=== PATIENT | male | born 1945 | race Caucasian/White ===

== ENCOUNTER → 2020-03-10 | Outpatient (REF) | payer MEDICARE ==
[~2020-03-10] MED LIST: AMLO10TA5 PO; ASPI81TA26 PO; ATEN100T PO; COLA100C5 PO; CRES5TAB PO; ENAL20TA PO; HUMA75VL SC; HYDR50TAB PO; INSUHUMDS SC; METF10004 PO; PERC5TAB12 PO; PIOG1TAB36 PO; TYLE325T5 PO; VITA500T88 PO; ZOFR4TAB14 PO
== END ==
LOC: M LAB REF 14:50
PROVIDERS: ATTEND Ophthalmology
DX: D23.111 Other benign neoplasm of skin of right upper eyelid, including canthus (principal)

== ENCOUNTER 2021-07-03 12:32 | Inpatient (IN) | payer MEDICARE ==
[~2021-07-03] VITALS: Ht 175.3 cm; Wt 131.3 kg
[~2021-07-03 12:32] MED LIST changes: -AMLO10TA5 PO; +AMLO1TAB25 PO; +BARICITINIB 2MG TABLET (OLUMIANT) FOR EUA PO SCH; -ENAL20TA PO; +ENAL20TA11 PO; +dexameTHASONE 4 MG/ML 1ML VIAL (J1100 PER 1MG) IV SCH
[2021-07-03 14:10] LABS: VENOUS BASE EXCESS -0.2 (-2.0-2.0); VENOUS HCO3 27.4 MEQ/L (23.0-27.0); VENOUS O2 SATURATION 50.4 % (60.0-80.0); VENOUS PARTIAL PRESSURE CO2 55.9 mmHg (38.0-50.0); VENOUS PARTIAL PRESSURE O2 28.4 mmHg (30.0-50.0); VENOUS PH 7.308 UNITS (7.330-7.430); VENOUS TOTAL CO2 29.1 MEQ/L (24.0-28.0)
[2021-07-03 14:16] LABS: BASO % 0.1 % (0.0-1.0); HEMATOCRIT 46.6 % (42.0-52.0); HEMOGLOBIN 15.8 g/dl (13.5-17.5); LYMPH # 1.2 10^3/uL (1.5-5.0); LYMPH % 15.4 % (24.0-44.0); MEAN CORPUSCULAR HEMOGLOBIN 30.6 pg (27.0-33.0); MEAN CORPUSCULAR HGB CONC 33.9 g/dl (32.0-36.5); MEAN CORPUSCULAR VOLUME 90.3 fl (80.0-96.0); MONO # 0.6 10^3/uL (0.0-0.8); MONO % 7.3 % (2.0-8.0); NEUTROPHILS # 6.1 10^3/uL (1.5-8.5); NEUTROPHILS % 76.6 % (36.0-66.0); PLATELET COUNT, AUTOMATED 155 10^3/uL (150-450); RED BLOOD COUNT 5.16 10^6/uL (4.30-6.10)
[2021-07-03 14:33] LABS: INR 0.91; PROTHROMBIN TIME 12.7 SECONDS (12.7-14.5)
[2021-07-03 14:34] LABS: PARTIAL THROMBOPLASTIN TIME 31.5 SECONDS (25.9-37.0)
[2021-07-03 14:36] LABS: D-DIMER QUANT 1051.41 ng/ml (<500)
[2021-07-03 14:45] LABS: BLOOD UREA NITROGEN 66 MG/DL (7-18); GLUCOSE, FASTING 396 MG/DL (70-100)
[2021-07-03] MEDS ORDERED: AZITHROMYCIN INJ 500 MG, VIAL MATE ADAPTER 1 EACH in NS 250 ML IV ONE (14:45)
[2021-07-03] MEDS ORDERED: NS 3,930 ML in IV 1 EA IV ONE (14:45)
[2021-07-03] MEDS ORDERED: cefTRIAXone SOD 2 GM in D5W MINI-BAG PLUS 50 ML IV ONE (14:45)
[2021-07-03 14:46] LABS: ALBUMIN 2.8 GM/DL (3.2-5.2); ALT/SGPT 17 U/L (12-78); BILIRUBIN,TOTAL 0.6 MG/DL (0.2-1.0); CALCIUM LEVEL 8.6 MG/DL (8.8-10.2); CARBON DIOXIDE LEVEL 30 MEQ/L (21-32); CHLORIDE LEVEL 95 MEQ/L (98-107); CK-MB VALUE MASS 3.5 NG/ML (<3.6); CPK CREATINE PHOSPHOKINASE 453 U/L (39-308); FERRITIN 1352 NG/ML (26-388); GLOMERULAR FILTRATION RATE 17.6 (>42); LDH LACTATE DEHYDROGENASE 340 U/L (87-241); MAGNESIUM LEVEL 1.9 MG/DL (1.8-2.4); MB/CK RELATIVE INDEX 0.77 (< OR =4); POTASSIUM SERUM 4.3 MEQ/L (3.5-5.1); SODIUM LEVEL 134 MEQ/L (136-145); TOTAL PROTEIN 7.4 GM/DL (6.4-8.2); TROPONIN I < 0.02 NG/ML (< 0.10)
[2021-07-03] MEDS ORDERED: GLUCAGON INJ 1MG VIAL SC PRN (17:50)
[2021-07-03] MEDS ORDERED: GLUCOSE 4GM CHEW TABLET PO PRN (17:50)
[2021-07-03] MEDS ORDERED: DEXTROSE 50% 50 ML SYRINGE IV PRN (17:50)
[2021-07-03] MEDS ORDERED: REMDESIVIR 200 MG in NS 250 ML IV ONE (20:00)
[2021-07-03] MEDS ORDERED: ENOXAPARIN 80MG/0.8ML SYRINGE (J1650 PER 10MG) SC SCH (21:00)
[2021-07-03] MEDS ORDERED: SODIUM CHLORIDE 0.9% INJ 10 ML SYR IV ONE (22:00)
[2021-07-03 22:47] VITALS: BP 141/80
[2021-07-03] MEDS: NS 1,000 ML IV SCH (23:18)
[2021-07-03] MEDS: HumaLOG INSULIN (NovoLOG) PER UNIT SC SCH (23:26)
[2021-07-03] MEDS: dexameTHASONE 4 MG/ML 1ML VIAL (J1100 PER 1MG) IV SCH (23:58)
[2021-07-04] VITALS (14 sets, daily range): BP systolic 128–169; BP diastolic 58–73; O2SAT 88–97
[2021-07-04] MEDS ORDERED: ZETI10TA16 PO
[2021-07-04] MEDS ORDERED: TOUJ1.2I SC
[2021-07-04] MEDS ORDERED: HUMA50IN4 SC
[2021-07-04] MEDS ORDERED: VICT18IN SC
[2021-07-04] MEDS ORDERED: LOSA50TA28 PO
[2021-07-04] MEDS ORDERED: ASPI-161 PO
[2021-07-04] MEDS: BARICITINIB 2MG TABLET (OLUMIANT) FOR EUA PO SCH ×2 (00:12→20:07)
[2021-07-04 03:11] LABS: APPEARANCE, URINE HAZY (CLEAR); BACTERIA, URINE AUTO NEGATIVE (NEGATIVE); BILIRUBIN, URINE AUTO NEGATIVE (NEGATIVE); BLOOD, URINE BLOOD NEGATIVE (NEGATIVE); COLOR, URINE YELLOW (YELLOW); GLUCOSE, URINE (UA) AUTO 3+ mg/dL (NEGATIVE); KETONE, URINE AUTO TRACE mg/dL (NEGATIVE); LEUKOCYTE ESTERASE, URINE AUTO NEGATIVE (NEGATIVE); MUCUS, URINE SMALL (NEGATIVE); NITRITE, URINE AUTO NEGATIVE (NEGATIVE); PROTEIN, URINE AUTO 2+ mg/dL (NEGATIVE); RBC, URINE AUTO 1 /HPF (0-3); SQUAMOUS EPITHELIAL CELL UR AU 2 /HPF (0-6); UROBILINOGEN, URINE AUTO 0.2 mg/dL (0.0-2.0); WBC, URINE AUTO 4 /HPF (0-3)
[2021-07-04 05:52] LABS: BASO % 0.2 % (0.0-1.0); HEMATOCRIT 41.5 % (42.0-52.0); LYMPH # 0.9 10^3/uL (1.5-5.0); LYMPH % 13.1 % (24.0-44.0); MEAN CORPUSCULAR HEMOGLOBIN 30.6 pg (27.0-33.0); MEAN CORPUSCULAR HGB CONC 33.7 g/dl (32.0-36.5); MEAN CORPUSCULAR VOLUME 90.8 fl (80.0-96.0); MONO # 0.3 10^3/uL (0.0-0.8); MONO % 5.1 % (2.0-8.0); NEUTROPHILS # 5.4 10^3/uL (1.5-8.5); NEUTROPHILS % 80.8 % (36.0-66.0); PLATELET COUNT, AUTOMATED 152 10^3/uL (150-450); RED BLOOD COUNT 4.57 10^6/uL (4.30-6.10); WHITE BLOOD COUNT 6.6 10^3/uL (4.0-10.0)
[2021-07-04 06:20] LABS: CALCIUM LEVEL 7.5 MG/DL (8.8-10.2); CREATININE FOR GFR 2.62 MG/DL (0.70-1.30); GLOMERULAR FILTRATION RATE 25.4 (>42); MAGNESIUM LEVEL 1.8 MG/DL (1.8-2.4); POTASSIUM SERUM 3.8 MEQ/L (3.5-5.1)
[2021-07-04] MEDS: HumaLOG INSULIN (NovoLOG) PER UNIT SC SCH ×4 (08:43→20:10)
[2021-07-04] MEDS: NS 1,000 ML IV SCH ×3 (08:44→17:42)
[2021-07-04] MEDS ORDERED: LEVEMIR (INSULIN DETEMIR) 1 UNITS/0.01ML SC SCH ×4 (09:00→21:00)
[2021-07-04] MEDS ORDERED: HOME MED LIST COMPLETE! XX SCH (09:10)
[2021-07-04] MEDS: EZETIMIBE 10MG TABLET (ZETIA) PO SCH (09:56)
[2021-07-04] MEDS: atenoloL 50 MG TAB PO SCH (09:56)
[2021-07-04] MEDS ORDERED: LEVEMIR (INSULIN DETEMIR) 1 UNITS/0.01ML SC ONE (12:00)
[2021-07-04] MEDS ORDERED: HEPARIN SOD (PORCINE) 5000UNITS/ML 1ML VIAL/SYRINGE SQ SCH (14:00)
[2021-07-04] MEDS ORDERED: FUROSEMIDE 40MG/4ML VIAL (J1940) IV ONE (15:00)
[2021-07-04] MEDS: ENOXAPARIN 80MG/0.8ML SYRINGE (J1650 PER 10MG) SC SCH ×2 (16:15→20:06)
[2021-07-04] MEDS: AZITHROMYCIN INJ 500 MG, VIAL MATE ADAPTER 1 EACH in NS 250 ML IV SCH (16:15)
[2021-07-04] MEDS: cefTRIAXone SOD 2 GM in D5W MINI-BAG PLUS 50 ML IV SCH (17:42)
[2021-07-04] MEDS: REMDESIVIR 100 MG in NS 250 ML IV SCH (19:14)
[2021-07-04] MEDS: SODIUM CHLORIDE 0.9% INJ 10 ML SYR IV SCH (19:14)
[2021-07-04] MEDS: ASPIRIN 81MG ENTERIC TABLET PO SCH (20:06)
[2021-07-04] MEDS: dexameTHASONE 4 MG/ML 1ML VIAL (J1100 PER 1MG) IV SCH (20:06)
[2021-07-05] VITALS (13 sets, daily range): BP systolic 136–169; BP diastolic 65–88; O2SAT 90–93
[2021-07-05] MEDS: NS 1,000 ML IV SCH ×2 (04:20→15:06)
[2021-07-05 07:44] LABS: HEMATOCRIT 40.7 % (42.0-52.0); HEMOGLOBIN 13.6 g/dl (13.5-17.5); LYMPH % 17.4 % (24.0-44.0); MEAN CORPUSCULAR HEMOGLOBIN 30.3 pg (27.0-33.0); MEAN CORPUSCULAR HGB CONC 33.4 g/dl (32.0-36.5); MEAN CORPUSCULAR VOLUME 90.6 fl (80.0-96.0); MONO # 0.3 10^3/uL (0.0-0.8); MONO % 4.5 % (2.0-8.0); NEUTROPHILS # 4.6 10^3/uL (1.5-8.5); NEUTROPHILS % 77.1 % (36.0-66.0); PLATELET COUNT, AUTOMATED 183 10^3/uL (150-450); RED BLOOD COUNT 4.49 10^6/uL (4.30-6.10)
[2021-07-05 08:08] LABS: INR 1.01; PROTHROMBIN TIME 13.7 SECONDS (12.7-14.5)
[2021-07-05 08:09] LABS: PARTIAL THROMBOPLASTIN TIME 40.1 SECONDS (25.9-37.0)
[2021-07-05 08:21] LABS: ALBUMIN 1.9 GM/DL (3.2-5.2); BILIRUBIN,DIRECT 0.2 MG/DL (0.0-0.2); BILIRUBIN,TOTAL 0.3 MG/DL (0.2-1.0); CALCIUM LEVEL 7.3 MG/DL (8.8-10.2); CREATININE FOR GFR 1.97 MG/DL (0.70-1.30); GLOMERULAR FILTRATION RATE 35.4 (>42); MAGNESIUM LEVEL 1.8 MG/DL (1.8-2.4); POTASSIUM SERUM 3.9 MEQ/L (3.5-5.1); TOTAL PROTEIN 5.9 GM/DL (6.4-8.2); TROPONIN I 0.02 NG/ML (< 0.10)
[2021-07-05] MEDS: ENOXAPARIN 80MG/0.8ML SYRINGE (J1650 PER 10MG) SC SCH ×2 (08:37→21:10)
[2021-07-05] MEDS: LEVEMIR (INSULIN DETEMIR) 1 UNITS/0.01ML SC SCH ×2 (08:37→21:00)
[2021-07-05] MEDS: atenoloL 50 MG TAB PO SCH (08:38)
[2021-07-05] MEDS: EZETIMIBE 10MG TABLET (ZETIA) PO SCH (08:38)
[2021-07-05] MEDS: HumaLOG INSULIN (NovoLOG) PER UNIT SC SCH ×4 (08:38→21:00)
[2021-07-05] MEDS ORDERED: FUROSEMIDE 40MG/4ML VIAL (J1940) IV SCH (09:00)
[2021-07-05] MEDS: AZITHROMYCIN INJ 500 MG, VIAL MATE ADAPTER 1 EACH in NS 250 ML IV SCH (15:05)
[2021-07-05] MEDS: SODIUM CHLORIDE 0.9% INJ 10 ML SYR IV SCH (15:38)
[2021-07-05] MEDS: cefTRIAXone SOD 2 GM in D5W MINI-BAG PLUS 50 ML IV SCH (16:25)
[2021-07-05] MEDS: REMDESIVIR 100 MG in NS 250 ML IV SCH (18:23)
[2021-07-05] MEDS: dexameTHASONE 4 MG/ML 1ML VIAL (J1100 PER 1MG) IV SCH (21:09)
[2021-07-05] MEDS: ASPIRIN 81MG ENTERIC TABLET PO SCH (21:09)
[2021-07-05] MEDS: BARICITINIB 2MG TABLET (OLUMIANT) FOR EUA PO SCH (21:09)
[2021-07-06] VITALS (13 sets, daily range): BP systolic 122–182; BP diastolic 42–91; O2SAT 89
[2021-07-06] MEDS: NS 1,000 ML IV SCH ×2 (05:00→19:18)
[2021-07-06 05:17] LABS: HEMATOCRIT 42.1 % (42.0-52.0); HEMOGLOBIN 14.4 g/dl (13.5-17.5); MEAN CORPUSCULAR HEMOGLOBIN 30.4 pg (27.0-33.0); MEAN CORPUSCULAR HGB CONC 34.2 g/dl (32.0-36.5); MEAN CORPUSCULAR VOLUME 88.8 fl (80.0-96.0); PLATELET COUNT, AUTOMATED 212 10^3/uL (150-450); RED BLOOD COUNT 4.74 10^6/uL (4.30-6.10); WHITE BLOOD COUNT 6.9 10^3/uL (4.0-10.0)
[2021-07-06 05:32] LABS: CALCIUM LEVEL 6.8 MG/DL (8.8-10.2); CREATININE FOR GFR 1.57 MG/DL (0.70-1.30); MAGNESIUM LEVEL 1.7 MG/DL (1.8-2.4); POTASSIUM SERUM 3.8 MEQ/L (3.5-5.1)
[2021-07-06 05:48] LABS: ATYPICAL LYMPH 2 % (0-5); LYMPHOCYTES 11 % (16-44); MONOCYTES 3 % (0-5); NEUTROPHILS 82 % (28-66)
[2021-07-06 05:49] LABS: PLATELET ESTIMATE NORMAL (NORMAL)
[2021-07-06] MEDS: HumaLOG INSULIN (NovoLOG) PER UNIT SC SCH ×4 (08:51→20:22)
[2021-07-06] MEDS: ENOXAPARIN 80MG/0.8ML SYRINGE (J1650 PER 10MG) SC SCH ×2 (08:51→20:23)
[2021-07-06] MEDS: LEVEMIR (INSULIN DETEMIR) 1 UNITS/0.01ML SC SCH ×2 (08:51→20:21)
[2021-07-06] MEDS: atenoloL 50 MG TAB PO SCH (08:52)
[2021-07-06] MEDS: **hydrALAZINE HCL** 25 MG TAB PO SCH ×2 (08:52→20:23)
[2021-07-06] MEDS: EZETIMIBE 10MG TABLET (ZETIA) PO SCH (08:52)
[2021-07-06 16:08] LABS: BODY FLUID CULTURE Not indicated. (.); LEGIONELLA ANTIGEN URINE Negative (Negative); ORGANISM ID Not indicated. (.); SPECIMEN SOURCE Urine (.); URINE STREP PNEUMONIAE ANTIGEN Negative (Negative)
[2021-07-06] MEDS: cefTRIAXone SOD 2 GM in D5W MINI-BAG PLUS 50 ML IV SCH (17:16)
[2021-07-06] MEDS: AZITHROMYCIN INJ 500 MG, VIAL MATE ADAPTER 1 EACH in NS 250 ML IV SCH (17:16)
[2021-07-06] MEDS: REMDESIVIR 100 MG in NS 250 ML IV SCH (18:00)
[2021-07-06] MEDS: SODIUM CHLORIDE 0.9% INJ 10 ML SYR IV SCH (19:18)
[2021-07-06] MEDS: BARICITINIB 2MG TABLET (OLUMIANT) FOR EUA PO SCH (20:22)
[2021-07-06] MEDS: ASPIRIN 81MG ENTERIC TABLET PO SCH (20:22)
[2021-07-06] MEDS: dexameTHASONE 4 MG/ML 1ML VIAL (J1100 PER 1MG) IV SCH (20:23)
[2021-07-07] VITALS (13 sets, daily range): BP systolic 128–183; BP diastolic 66–107; O2SAT 87–97
[2021-07-07 05:20] LABS: HEMATOCRIT 44.3 % (42.0-52.0); MEAN CORPUSCULAR HEMOGLOBIN 30.2 pg (27.0-33.0); MEAN CORPUSCULAR HGB CONC 33.9 g/dl (32.0-36.5); MEAN CORPUSCULAR VOLUME 89.3 fl (80.0-96.0); PLATELET COUNT, AUTOMATED 265 10^3/uL (150-450); RED BLOOD COUNT 4.96 10^6/uL (4.30-6.10); WHITE BLOOD COUNT 7.3 10^3/uL (4.0-10.0)
[2021-07-07 05:34] LABS: INR 1.09; PROTHROMBIN TIME 14.5 SECONDS (12.7-14.5)
[2021-07-07 05:35] LABS: PARTIAL THROMBOPLASTIN TIME 26.3 SECONDS (25.9-37.0)
[2021-07-07 05:46] LABS: ATYPICAL LYMPH 1 % (0-5); LYMPHOCYTES 6 % (16-44); MONOCYTES 3 % (0-5); NEUTROPHILS 90 % (28-66)
[2021-07-07 05:47] LABS: PLATELET ESTIMATE NORMAL (NORMAL)
[2021-07-07 05:48] LABS: ALT/SGPT 21 U/L (12-78); BILIRUBIN,DIRECT 0.1 MG/DL (0.0-0.2); BILIRUBIN,TOTAL 0.3 MG/DL (0.2-1.0); BLOOD UREA NITROGEN 48 MG/DL (7-18); CALCIUM LEVEL 7.3 MG/DL (8.8-10.2); CARBON DIOXIDE LEVEL 25 MEQ/L (21-32); CHLORIDE LEVEL 109 MEQ/L (98-107); CPK CREATINE PHOSPHOKINASE 203 U/L (39-308); CREATININE FOR GFR 1.45 MG/DL (0.70-1.30); FERRITIN 1375 NG/ML (26-388); GLOMERULAR FILTRATION RATE 50.4 (>42); GLUCOSE, FASTING 123 MG/DL (70-100); LDH LACTATE DEHYDROGENASE 993 U/L (87-241); MAGNESIUM LEVEL 1.7 MG/DL (1.8-2.4); NT-PRO BNP 1784 PG/ML (<450); SODIUM LEVEL 144 MEQ/L (136-145); TOTAL PROTEIN 6.2 GM/DL (6.4-8.2); TROPONIN I < 0.02 NG/ML (< 0.10)
[2021-07-07] MEDS: HumaLOG INSULIN (NovoLOG) PER UNIT SC SCH ×4 (08:28→21:00)
[2021-07-07] MEDS: LEVEMIR (INSULIN DETEMIR) 1 UNITS/0.01ML SC SCH ×2 (08:28→20:57)
[2021-07-07] MEDS: **hydrALAZINE HCL** 25 MG TAB PO SCH ×3 (08:29→21:05)
[2021-07-07] MEDS: EZETIMIBE 10MG TABLET (ZETIA) PO SCH (08:30)
[2021-07-07] MEDS: ENOXAPARIN 80MG/0.8ML SYRINGE (J1650 PER 10MG) SC SCH ×2 (08:30→20:56)
[2021-07-07] MEDS: NS 1,000 ML IV SCH (08:30)
[2021-07-07] MEDS: atenoloL 50 MG TAB PO SCH (08:30)
[2021-07-07] MEDS: cefTRIAXone SOD 2 GM in D5W MINI-BAG PLUS 50 ML IV SCH (15:02)
[2021-07-07] MEDS: AZITHROMYCIN INJ 500 MG, VIAL MATE ADAPTER 1 EACH in NS 250 ML IV SCH (15:02)
[2021-07-07] MEDS ORDERED: guaiFENesin SYRUP 200 MG/10 ML UDC PO PRN (16:30)
[2021-07-07] MEDS: REMDESIVIR 100 MG in NS 250 ML IV SCH (17:01)
[2021-07-07] MEDS: SODIUM CHLORIDE 0.9% INJ 10 ML SYR IV SCH (17:02)
[2021-07-07] MEDS: BARICITINIB 2MG TABLET (OLUMIANT) FOR EUA PO SCH (20:55)
[2021-07-07] MEDS: dexameTHASONE 4 MG/ML 1ML VIAL (J1100 PER 1MG) IV SCH (20:56)
[2021-07-07] MEDS: ASPIRIN 81MG ENTERIC TABLET PO SCH (21:00)
[2021-07-08] VITALS (10 sets, daily range): BP systolic 145–188; BP diastolic 65–90; O2SAT 90–95
[2021-07-08 05:28] LABS: HEMATOCRIT 43.8 % (42.0-52.0); HEMOGLOBIN 15.1 g/dl (13.5-17.5); MEAN CORPUSCULAR HEMOGLOBIN 30.6 pg (27.0-33.0); MEAN CORPUSCULAR HGB CONC 34.5 g/dl (32.0-36.5); MEAN CORPUSCULAR VOLUME 88.8 fl (80.0-96.0); PLATELET COUNT, AUTOMATED 307 10^3/uL (150-450); RED BLOOD COUNT 4.93 10^6/uL (4.30-6.10)
[2021-07-08 05:41] LABS: CREATININE FOR GFR 1.37 MG/DL (0.70-1.30); GLOMERULAR FILTRATION RATE 53.8 (>42); MAGNESIUM LEVEL 1.8 MG/DL (1.8-2.4); POTASSIUM SERUM 4.1 MEQ/L (3.5-5.1)
[2021-07-08 05:47] LABS: ATYPICAL LYMPH 2 % (0-5); EOSINOPHILS 1 % (0-3); LYMPHOCYTES 12 % (16-44); MONOCYTES 4 % (0-5); NEUTROPHILS 81 % (28-66)
[2021-07-08 05:48] LABS: PLATELET ESTIMATE NORMAL (NORMAL)
[2021-07-08] MEDS: HumaLOG INSULIN (NovoLOG) PER UNIT SC SCH ×4 (07:30→21:00)
[2021-07-08] MEDS: **hydrALAZINE HCL** 25 MG TAB PO SCH ×3 (09:19→21:13)
[2021-07-08] MEDS: atenoloL 50 MG TAB PO SCH (09:20)
[2021-07-08] MEDS: EZETIMIBE 10MG TABLET (ZETIA) PO SCH (09:20)
[2021-07-08] MEDS: LEVEMIR (INSULIN DETEMIR) 1 UNITS/0.01ML SC SCH ×2 (09:21→21:14)
[2021-07-08] MEDS: ENOXAPARIN 80MG/0.8ML SYRINGE (J1650 PER 10MG) SC SCH ×2 (09:22→21:14)
[2021-07-08] MEDS: AZITHROMYCIN INJ 500 MG, VIAL MATE ADAPTER 1 EACH in NS 250 ML IV SCH (16:44)
[2021-07-08] MEDS: cefTRIAXone SOD 2 GM in D5W MINI-BAG PLUS 50 ML IV SCH (16:44)
[2021-07-08] MEDS: ASPIRIN 81MG ENTERIC TABLET PO SCH (21:13)
[2021-07-08] MEDS: BARICITINIB 2MG TABLET (OLUMIANT) FOR EUA PO SCH (21:13)
[2021-07-08] MEDS: dexameTHASONE 4 MG/ML 1ML VIAL (J1100 PER 1MG) IV SCH (21:15)
[2021-07-09 04:00] VITALS: BP 151/68
[2021-07-09 05:23] LABS: HEMATOCRIT 43.4 % (42.0-52.0); HEMOGLOBIN 14.6 g/dl (13.5-17.5); MEAN CORPUSCULAR HGB CONC 33.6 g/dl (32.0-36.5); MEAN CORPUSCULAR VOLUME 89.1 fl (80.0-96.0); PLATELET COUNT, AUTOMATED 356 10^3/uL (150-450); RED BLOOD COUNT 4.87 10^6/uL (4.30-6.10); WHITE BLOOD COUNT 10.4 10^3/uL (4.0-10.0)
[2021-07-09 05:32] LABS: INR 1.05; PROTHROMBIN TIME 14.1 SECONDS (12.7-14.5)
[2021-07-09 05:33] LABS: PARTIAL THROMBOPLASTIN TIME 35.2 SECONDS (25.9-37.0)
[2021-07-09 05:43] LABS: ALT/SGPT 17 U/L (12-78); BILIRUBIN,DIRECT 0.2 MG/DL (0.0-0.2); BILIRUBIN,TOTAL 0.3 MG/DL (0.2-1.0); BLOOD UREA NITROGEN 42 MG/DL (7-18); CALCIUM LEVEL 7.1 MG/DL (8.8-10.2); CARBON DIOXIDE LEVEL 29 MEQ/L (21-32); CHLORIDE LEVEL 111 MEQ/L (98-107); CPK CREATINE PHOSPHOKINASE 93 U/L (39-308); CREATININE FOR GFR 1.36 MG/DL (0.70-1.30); FERRITIN 993 NG/ML (26-388); GLOMERULAR FILTRATION RATE 54.2 (>42); GLUCOSE, FASTING 48 MG/DL (70-100); LDH LACTATE DEHYDROGENASE 845 U/L (87-241); MAGNESIUM LEVEL 1.9 MG/DL (1.8-2.4); NT-PRO BNP 1891 PG/ML (<450); POTASSIUM SERUM 4.2 MEQ/L (3.5-5.1); SODIUM LEVEL 144 MEQ/L (136-145); TOTAL PROTEIN 6.2 GM/DL (6.4-8.2); TROPONIN I < 0.02 NG/ML (< 0.10)
[2021-07-09 05:50] LABS: LYMPHOCYTES 11 % (16-44); MONOCYTES 1 % (0-5); NEUTROPHILS 88 % (28-66)
[2021-07-09 05:51] LABS: PLATELET ESTIMATE NORMAL (NORMAL)
[2021-07-09 06:00] VITALS: BP 145/70
[2021-07-09 08:00] VITALS: BP 176/77
[2021-07-09] MEDS: HumaLOG INSULIN (NovoLOG) PER UNIT SC SCH ×4 (08:00→21:15)
[2021-07-09] MEDS: atenoloL 50 MG TAB PO SCH (09:57)
[2021-07-09] MEDS: EZETIMIBE 10MG TABLET (ZETIA) PO SCH (09:58)
[2021-07-09] MEDS: LEVEMIR (INSULIN DETEMIR) 1 UNITS/0.01ML SC SCH ×2 (09:58→21:14)
[2021-07-09] MEDS: ENOXAPARIN 80MG/0.8ML SYRINGE (J1650 PER 10MG) SC SCH ×2 (09:58→21:15)
[2021-07-09] MEDS: **hydrALAZINE HCL** 25 MG TAB PO SCH ×3 (09:58→21:14)
[2021-07-09 12:00] VITALS: BP 141/77
[2021-07-09] MEDS ORDERED: ALBUTEROL SULFATE 2.5 MG/0.5 ML INH NEB SOLN INH PRN (12:20)
[2021-07-09] MEDS: LOSARTAN 50MG TABLET PO SCH (13:00)
[2021-07-09] MEDS: IPRATROPIUM 0.5MG/ALBUTEROL 2.5MG INH SOL UD 3ML (DUONEB) NEB SCH ×3 (13:28→21:13)
[2021-07-09] MEDS ORDERED: MECLIZINE 25 MG TABLET PO PRN (15:00)
[2021-07-09] MEDS ORDERED: ACETAMINOPHEN TAB 650MG DOSE (2X325MG) PO PRN (15:15)
[2021-07-09] MEDS: AZITHROMYCIN INJ 500 MG, VIAL MATE ADAPTER 1 EACH in NS 250 ML IV SCH (15:33)
[2021-07-09 16:00] VITALS: BP 163/72
[2021-07-09] MEDS: cefTRIAXone SOD 2 GM in D5W MINI-BAG PLUS 50 ML IV SCH (17:18)
[2021-07-09 20:00] VITALS: BP 182/70
[2021-07-09] MEDS: BARICITINIB 2MG TABLET (OLUMIANT) FOR EUA PO SCH (21:13)
[2021-07-09] MEDS: ASPIRIN 81MG ENTERIC TABLET PO SCH (21:14)
[2021-07-09] MEDS: dexameTHASONE 4 MG/ML 1ML VIAL (J1100 PER 1MG) IV SCH (21:15)
[2021-07-10] VITALS (11 sets, daily range): BP systolic 141–180; BP diastolic 64–80; O2SAT 87–91
[2021-07-10] MEDS: IPRATROPIUM 0.5MG/ALBUTEROL 2.5MG INH SOL UD 3ML (DUONEB) NEB SCH ×7 (00:41→23:29)
[2021-07-10] MEDS ORDERED: LORazepam 2 MG/ML VIAL IV STA (01:30)
[2021-07-10 05:18] LABS: HEMATOCRIT 44.5 % (42.0-52.0); HEMOGLOBIN 15.2 g/dl (13.5-17.5); MEAN CORPUSCULAR HEMOGLOBIN 30.5 pg (27.0-33.0); MEAN CORPUSCULAR HGB CONC 34.2 g/dl (32.0-36.5); MEAN CORPUSCULAR VOLUME 89.2 fl (80.0-96.0); PLATELET COUNT, AUTOMATED 435 10^3/uL (150-450); RED BLOOD COUNT 4.99 10^6/uL (4.30-6.10); WHITE BLOOD COUNT 12.7 10^3/uL (4.0-10.0)
[2021-07-10 05:42] LABS: CALCIUM LEVEL 7.5 MG/DL (8.8-10.2); CREATININE FOR GFR 1.5 MG/DL (0.70-1.30); GLOMERULAR FILTRATION RATE 48.4 (>42); POTASSIUM SERUM 4.5 MEQ/L (3.5-5.1)
[2021-07-10 05:47] LABS: LYMPHOCYTES 10 % (16-44); METAMYELOCYTES 3 % (0-0); MONOCYTES 4 % (0-5); NEUTROPHILS 83 % (28-66); PLATELET ESTIMATE INCREASED (NORMAL)
[2021-07-10 05:48] LABS: PLATELET CLUMPS SMALL AMT
[2021-07-10] MEDS ORDERED: hydrOXYzine 25 MG TAB PO ONE (05:50)
[2021-07-10] MEDS: HumaLOG INSULIN (NovoLOG) PER UNIT SC SCH ×4 (07:30→19:56)
[2021-07-10] MEDS: LEVEMIR (INSULIN DETEMIR) 1 UNITS/0.01ML SC SCH ×2 (08:45→21:00)
[2021-07-10] MEDS: ENOXAPARIN 80MG/0.8ML SYRINGE (J1650 PER 10MG) SC SCH ×2 (08:47→19:52)
[2021-07-10] MEDS: atenoloL 50 MG TAB PO SCH (08:48)
[2021-07-10] MEDS: **hydrALAZINE HCL** 25 MG TAB PO SCH ×3 (08:48→19:56)
[2021-07-10] MEDS: EZETIMIBE 10MG TABLET (ZETIA) PO SCH (08:48)
[2021-07-10] MEDS: LOSARTAN 50MG TABLET PO SCH (08:48)
[2021-07-10 10:34] LABS: ABG HCO3 26.9 MEQ/L (22.0-26.0); ABG PARTIAL PRESSURE CO2 39.2 mmHg (35.0-45.0); ABG PARTIAL PRESSURE O2 103.5 mmHg (75.0-100.0); ABG STANDARD HCO3 27.1 MEQ/L (22.0-26.0); ABG TOTAL CO2 28.1 MEQ/L (23.0-31.0); ABG pH (ARTERIAL) 7.455 UNITS (7.350-7.450)
[2021-07-10] MEDS: AZITHROMYCIN INJ 500 MG, VIAL MATE ADAPTER 1 EACH in NS 250 ML IV SCH (15:39)
[2021-07-10] MEDS: cefTRIAXone SOD 2 GM in D5W MINI-BAG PLUS 50 ML IV SCH (17:06)
[2021-07-10] MEDS: dexameTHASONE 4 MG/ML 1ML VIAL (J1100 PER 1MG) IV SCH (19:53)
[2021-07-10] MEDS: ASPIRIN 81MG ENTERIC TABLET PO SCH (19:53)
[2021-07-10] MEDS: BARICITINIB 2MG TABLET (OLUMIANT) FOR EUA PO SCH (19:53)
[2021-07-11] VITALS (32 sets, daily range): BP systolic 131–202; BP diastolic 61–86; O2SAT 68–97
[2021-07-11 04:19] LABS: BASO # 0.1 10^3/uL (0.0-0.2); BASO % 0.5 % (0.0-1.0); HEMATOCRIT 39.9 % (42.0-52.0); HEMOGLOBIN 13.3 g/dl (13.5-17.5); LYMPH # 0.7 10^3/uL (1.5-5.0); MEAN CORPUSCULAR HGB CONC 33.3 g/dl (32.0-36.5); MEAN CORPUSCULAR VOLUME 90.1 fl (80.0-96.0); MONO # 0.2 10^3/uL (0.0-0.8); MONO % 1.8 % (2.0-8.0); NEUTROPHILS # 8.7 10^3/uL (1.5-8.5); NEUTROPHILS % 85.7 % (36.0-66.0); PLATELET COUNT, AUTOMATED 387 10^3/uL (150-450); RED BLOOD COUNT 4.43 10^6/uL (4.30-6.10); WHITE BLOOD COUNT 10.1 10^3/uL (4.0-10.0)
[2021-07-11] MEDS: IPRATROPIUM 0.5MG/ALBUTEROL 2.5MG INH SOL UD 3ML (DUONEB) NEB SCH ×2 (04:32→07:29)
[2021-07-11 04:45] LABS: CALCIUM LEVEL 7.5 MG/DL (8.8-10.2); CREATININE FOR GFR 1.36 MG/DL (0.70-1.30); GLOMERULAR FILTRATION RATE 54.2 (>42); MAGNESIUM LEVEL 2.1 MG/DL (1.8-2.4); POTASSIUM SERUM 4.7 MEQ/L (3.5-5.1)
[2021-07-11] MEDS: HumaLOG INSULIN (NovoLOG) PER UNIT SC SCH ×4 (07:30→21:00)
[2021-07-11] MEDS: LEVEMIR (INSULIN DETEMIR) 1 UNITS/0.01ML SC SCH ×2 (09:00→21:00)
[2021-07-11] MEDS: **hydrALAZINE HCL** 25 MG TAB PO SCH ×3 (10:09→20:50)
[2021-07-11] MEDS: atenoloL 50 MG TAB PO SCH (10:09)
[2021-07-11] MEDS: LOSARTAN 50MG TABLET PO SCH (10:10)
[2021-07-11] MEDS: ENOXAPARIN 80MG/0.8ML SYRINGE (J1650 PER 10MG) SC SCH ×2 (10:10→20:50)
[2021-07-11] MEDS: EZETIMIBE 10MG TABLET (ZETIA) PO SCH (10:10)
[2021-07-11] MEDS ORDERED: ALBUTEROL 90 MCG/ACT 8GM HFA INHALER INH SCH (12:00)
[2021-07-11] MEDS: AZITHROMYCIN INJ 500 MG, VIAL MATE ADAPTER 1 EACH in NS 250 ML IV SCH (16:43)
[2021-07-11] MEDS: ALBUTEROL 90 MCG/ACT 8GM HFA INHALER INH SCH ×2 (16:47→19:08)
[2021-07-11] MEDS: cefTRIAXone SOD 2 GM in D5W MINI-BAG PLUS 50 ML IV SCH (18:13)
[2021-07-11] MEDS: BARICITINIB 2MG TABLET (OLUMIANT) FOR EUA PO SCH (20:49)
[2021-07-11] MEDS: dexameTHASONE 4 MG/ML 1ML VIAL (J1100 PER 1MG) IV SCH (20:50)
[2021-07-11] MEDS: ASPIRIN 81MG ENTERIC TABLET PO SCH (20:50)
[2021-07-12] VITALS (14 sets, daily range): BP systolic 161–193; BP diastolic 70–88; O2SAT 49–93
[2021-07-12] MEDS ORDERED: hydrALAZINE 20MG/ML 1ML VIAL (J0360 PER 20MG) IV SCH
[2021-07-12] MEDS ORDERED: MORPHINE 2 MG/ML 1ML VIAL (J2270) As Ordered ONE (03:09)
[2021-07-12] MEDS ORDERED: LORazepam 2 MG/ML VIAL As Ordered ONE (03:10)
== END 2021-07-12 03:15 | disposition expired | DRG 177 ==
LOC: M ED 12:32 → M ED INP 17:36 → ENRESERV 19:11 → CANRESERV 19:11 → ENRESERV 21:54 → M 4MAIN 22:47 → M ICU 07-05 14:48
PROVIDERS: ADMIT Internal Medicine; ATTEND Internal Medicine
DX: U07.1 COVID-19 (principal); J12.82 Pneumonia due to coronavirus disease 2019; J96.01 Acute respiratory failure with hypoxia; J18.9 Pneumonia, unspecified organism; N17.9 Acute kidney failure, unspecified; E87.2 Acidosis; Z68.42 Body mass index [BMI] 45.0-49.9, adult; E66.9 Obesity, unspecified; Z79.899 Other long term (current) drug therapy; Z79.82 Long term (current) use of aspirin; Z79.4 Long term (current) use of insulin; E78.5 Hyperlipidemia, unspecified; I10 Essential (primary) hypertension; E86.0 Dehydration; E11.65 Type 2 diabetes mellitus with hyperglycemia